=== PATIENT | male | born 1945 | race Caucasian/White ===

== ENCOUNTER 2019-08-25 08:27 | Outpatient (CLI) | payer MEDICARE ==
[2019-08-25 10:18] LABS: BASOPHILS % (AUTO) 0.5 %; EOSINOPHILS # (AUTO) 0.1 10^3/uL (0.0-0.7); HGB - HEMOGLOBIN 14.6 g/dL (14.0-18.0); LYMPHOCYTES # (AUTO) 1.6 10^3/uL (1.5-3.5); LYMPHOCYTES % (AUTO) 26.2 %; MEAN CORPUSCULAR VOLUME 102.9 fL (80.0-94.0); MONOCYTES # (AUTO) 0.5 10^3/uL (0.0-1.0); MONOCYTES % (AUTO) 9.1 %; NEUTROPHILS # (AUTO) 3.7 10^3/uL (1.5-6.6); PLT - PLATELET COUNT 191 10^3/uL (130-450); RED BLOOD COUNT 4.43 10^6/uL (4.70-6.10); RED CELL DISTRIBUTION WIDTH 12.8 % (12.0-15.0); WHITE BLOOD COUNT 5.9 x10^3/uL (4.8-10.8)
[2019-08-25 10:48] LABS: ALBUMIN/GLOBULIN RATIO 1.2 (1.0-2.2); ALKALINE PHOSPHATASE 47 IU/L (42-121); ALT ALANINE AMINOTRANSFERASE 16 IU/L (10-60); AST ASPARTATE AMINOTRANSFERASE 10 IU/L (10-42); BILIRUBIN,TOTAL 0.7 mg/dL (0.2-1.0); BUN - BLOOD UREA NITROGEN 18 mg/dL (6-20); CALCIUM 8.8 mg/dL (8.5-10.3); CARBON DIOXIDE - CO2 26 mmol/L (21-32); CHLORIDE 105 mmol/L (101-111); CHOL/HDL RATIO 3.1 (<5.0); CHOLESTEROL 197 mg/dL; CREATININE 0.9 mg/dL (0.6-1.2); GFR - MDRD 83 (>89); GLUCOSE 100 mg/dL (70-100); HDL CHOLESTEROL 63 mg/dL; LDL CHOLESTEROL,CALCULATED 119 mg/dL; LDL/HDL RATIO 1.9 (<3.6); SODIUM 138 mmol/L (135-145); TOTAL PROTEIN 7.4 g/dL (6.7-8.2); VLDL CHOLESTEROL 15 mg/dL
== END 2019-08-25 08:28 | disposition home or self-care (01) ==
LOC: LAB.S 08:27
PROVIDERS: ATTEND Internal Medicine
DX: E78.5 Hyperlipidemia, unspecified (principal); D75.89 Other specified diseases of blood and blood-forming organs
CPT/HCPCS: 36415; 80053; 80061; 85025; G0103; 83721; 84153

== ENCOUNTER 2020-05-27 22:46 | Inpatient (IN) | payer MEDICARE ==
--- NOTE | 2020-05-27 23:14 | ED Physician Documentation ---
PD HPI ABD PAIN - Stated complaint Stated Complaint: ABD PX - Chief complaint Chief Complaint: Abd Pain - History obtained from History obtained from: Patient - History of Present Illness Timing - onset: Today Timing - duration: Hours (8-10) Timing - details: Abrupt onset, Still present Quality: Cramping, Aching, Fullness/distended, Other (With onset of general abdominal cramping and subsequent distention and no output from his ostomy starting this afternoon. He typically has output every few hours and has to change the bag.) Location: All over / everywhere, Epigastric Worsened by: Eating Associated symptoms: Nausea, Vomiting. No: Fever, Diarrhea, Constipation (but no output from his ostomy since about noontime.) Similar symptoms before: Has not had sx before Recently seen: Not recently seen Review of Systems Constitutional: denies: Fever, Chills Nose: denies: Rhinorrhea / runny nose, Congestion Throat: denies: Sore throat Cardiac: denies: Chest pain / pressure Respiratory: denies: Dyspnea, Cough GI: reports: Abdominal Pain, Abdominal Swelling, Nausea, Vomiting (once only so far). denies: Constipation, Diarrhea : denies: Dysuria Musculoskeletal: denies: Back pain Neurologic: denies: Generalized weakness, Near syncope, Headache PD PAST MEDICAL HISTORY - Past Medical History Past Medical History: Yes Cardiovascular: None Respiratory: None Neuro: None Endocrine/Autoimmune: None GI: Ulcerative colitis : None HEENT: None Psych: None Musculoskeletal: None Derm: None - Past Surgical History Past Surgical History: Yes General: Other (colectomy with ileostomy due to UC perforation and infection) HEENT: Tonsil/Adenoidectomy Derm: Skin cancer surgery - Present Medications Home Medications: Ambulatory Orders Medication Instructions Recorded Confirmed No Known Home Medications 05/27/20 05/27/20 - Allergies Allergies/Adverse Reactions: Allergies Allergy/AdvReac Type Severity Reaction Status Date / Time No Known Drug Allergies Allergy Verified 05/27/20 22:54 - Living Situation Living Arrangement: reports: At home - Social History Does the pt smoke?: No Smoking Status: Never smoker - Family History Family history: reports: Non contributory. denies: Aortic aneursym PD ED PE NORMAL - Vitals Vital signs reviewed: Yes - General General: Alert and oriented X 3, Well developed/nourished, Other (appears in pain due to general abd pain.) - HEENT HEENT: Moist mucous membranes, Pharynx benign - Neck Neck: Supple, no meningeal sign, No adenopathy - Cardiac Cardiac: RRR, No murmur - Respiratory Respiratory: Clear bilaterally - Abdomen Abdomen: No organomegaly, Other (ileostomy noted without redness nor signs of infection. No output in bag. There is general abd bloating with hyperresonance to percussion. Generalized tender but mostly upper abd. ). No: Normal bowel sounds (hyperactive with rushes) - Male Male : Deferred - Rectal Rectal: Deferred - Back Back: No CVA TTP - Derm Derm: Normal color, Warm and dry - Extremities Extremities: No tenderness to palpate, Normal ROM s pain, No edema, No calf tenderness / cord - Neuro Neuro: Alert and oriented X 3, No motor deficit, No sensory deficit, Normal speech Eye Opening: Spontaneous Motor: Obeys Commands Verbal: Oriented GCS Score: 15 Results - Vitals Vitals: Vital Signs - 24 hr 05/27/20 05/28/20 22:51 00:30 Temperature 36.9 C Heart Rate 85 77 Respiratory 18 16 Rate Blood Pressure 153/87 H 145/88 H O2 Saturation 95 96 Oxygen O2 Source Room air - Labs Labs: Laboratory Tests 05/27/20 05/27/20 05/27/20 23:10 23:10 23:20 WBC 9.7 RBC 4.64 L Hgb 16.1 Hct 48.0 MCV 103.4 H MCH 34.7 H MCHC 33.5 RDW 12.7 Plt Count 217 MPV 10.0 Neut # (Auto) 8.2 H Lymph # (Auto) 1.0 L [place] # (Auto) 0.4 Eos # (Auto) 0.0 Baso # (Auto) 0.0 Absolute Nucleated RBC 0.00 Nucleated RBC % 0.0 Sodium 141 Potassium 3.9 Chloride 104 Carbon Dioxide 24 Anion Gap 13.0 BUN 20 Creatinine 1.1 Estimated GFR (MDRD) 65 L Glucose 149 H Calcium 9.9 Total Bilirubin 1.0 AST 14 ALT 20 Alkaline Phosphatase 59 Total Protein 7.6 Albumin 4.4 Globulin 3.2 Albumin/Globulin Ratio 1.4 Lipase 23 Urine Color YELLOW Urine Clarity CLEAR Urine pH 6.0 Ur Specific [place] >=1.030 H Urine Protein NEGATIVE Urine Glucose (UA) NEGATIVE Urine Ketones TRACE Urine Occult Blood NEGATIVE Urine Nitrite NEGATIVE Urine Bilirubin NEGATIVE Urine Urobilinogen 0.2 (NORMAL) Ur Leukocyte Esterase NEGATIVE Ur Microscopic Review NOT INDICATED Urine Culture Comments NOT INDICATED - Rads (name of study) abd/pelvic CT with oral/IV contrast Radiology: Prelim report reviewed (SBO with transition right periumbilical area. No free fluid. ), See rad report PD MEDICAL DECISION MAKING - ED course Complexity details: reviewed results (CT confirms SBO.), re-evaluated patient (comfortable after pain medicine but has return of pain after coming back from CT scan), considered differential (Is likely a bowel obstruction. Will get CT and labs to affirm. We will give patient IV fluids and medicines for pain and nausea.), d/w patient, d/w process improvement consultant (With Dr. Nieves on-call for surgery who refers it to medicine and will consult in the morning. I then talked with Dr. Borden.) Departure - Departure Disposition: ED Place in Observation Clinical Impression: Small bowel obstruction Abdominal pain Qualifiers: Abdominal location: generalized Qualified Code(s): R10.84 - Generalized abdominal pain Condition: Stable Record reviewed to determine appropriate education?: Yes
[2020-05-27 23:36] LABS: BILIRUBIN,URINE NEGATIVE (NEGATIVE); GLUCOSE, URINE (UA) NEGATIVE (NEGATIVE); KETONES,URINE (UA) TRACE mg/dL (NEGATIVE); LEUKOCYTE ESTERASE, URINE NEGATIVE (NEGATIVE); NITRITE,URINE NEGATIVE (NEGATIVE); OCCULT BLOOD,URINE NEGATIVE (NEGATIVE); PROTEIN,URINE NEGATIVE (NEGATIVE); UROBILINOGEN,URINE 0.2 (NORMAL) E.U./dL (NORMAL)
[2020-05-27 23:38] LABS: CLARITY,URINE CLEAR (CLEAR)
[2020-05-27] MEDS ORDERED: HYDROmorphone 1 MG/ML CARPUJECT IVP STA (23:41)
[2020-05-27] MEDS ORDERED: ONDANSETRON 4 MG/2 ML VIAL IVP STA (23:41)
[2020-05-27] MEDS ORDERED: SODIUM CHLORIDE 0.9% 1,000 ML IV STA (23:41)
[2020-05-27 23:45] LABS: ALBUMIN 4.4 g/dL (3.2-5.5); ALBUMIN/GLOBULIN RATIO 1.4 (1.0-2.2); CALCIUM 9.9 mg/dL (8.5-10.3); CREATININE 1.1 mg/dL (0.6-1.2); TOTAL PROTEIN 7.6 g/dL (6.7-8.2)
[2020-05-27 23:49] LABS: BASOPHILS % (AUTO) 0.4 %; EOSINOPHILS % (AUTO) 0.4 %; HGB - HEMOGLOBIN 16.1 g/dL (14.0-18.0); LYMPHOCYTES % (AUTO) 10.4 %; MEAN CORPUSCULAR HEMOGLOBIN 34.7 pg (27.0-31.0); MEAN CORPUSCULAR HGB CONC 33.5 g/dL (32.0-36.0); MEAN CORPUSCULAR VOLUME 103.4 fL (80.0-94.0); MONOCYTES # (AUTO) 0.4 10^3/uL (0.0-1.0); MONOCYTES % (AUTO) 4.3 %; NEUTROPHILS # (AUTO) 8.2 10^3/uL (1.5-6.6); NEUTROPHILS % (AUTO) 84.2 %; PLT - PLATELET COUNT 217 10^3/uL (130-450); RED BLOOD COUNT 4.64 10^6/uL (4.70-6.10); RED CELL DISTRIBUTION WIDTH 12.7 % (12.0-15.0); WHITE BLOOD COUNT 9.7 x10^3/uL (4.8-10.8)
[2020-05-27] MEDS ORDERED: IOVERSOL 320 100 ML VIAL IVP ONE (23:55)
[2020-05-27] MEDS ORDERED: IOVERSOL 320 50 ML VIAL ONE (23:55)
[2020-05-28] MEDS ORDERED: IOVERSOL 320 50 ML VIAL PO ONE (00:51)
[2020-05-28] MEDS ORDERED: IOVERSOL 320 100 ML VIAL IVP ONE (01:15)
[2020-05-28] MEDS ORDERED: LACTATED RINGERS 1,000 ML IV STA (01:53)
[2020-05-28] MEDS ORDERED: KETOROLAC 15 MG/ML VIAL IVP STA (01:53)
[2020-05-28] MEDS ORDERED: HYDROmorphone 1 MG/ML CARPUJECT IVP STA (01:53)
[2020-05-28] MEDS ORDERED: SODIUM CHLORIDE FLUSH 0.9% 10 ML SYRINGE IVP PRN (02:01)
[2020-05-28] MEDS ORDERED: ONDANSETRON 4 MG/2 ML VIAL IVP PRN (02:01)
[2020-05-28] MEDS ORDERED: oxyCODONE 5 MG TABLET PO PRN (02:01)
[2020-05-28] MEDS ORDERED: LACTATED RINGERS 1,000 ML IV ONE (02:03)
--- NOTE | 2020-05-28 02:06 | HISTORY & PHYSICAL EXAMINATION ---
Chief Complaint - Chief Complaint Chief Complaint: Abdominal pain. History of Present Illness - Admitted From Admitted From:: Home - History Obtained From Records Reviewed: Yes History obtained from: Patient, ER Physician, EMR - History of Present Illness HPI Comment/Other: This is a 75-year-old male with a past medical history significant for ulcer ative colitis who underwent a colectomy back in July 2015 after having perforated bowel. This ended up being a prolonged hospitalization and he required a small bowel resection as well due to infection. He has had an ileostomy in place since that hospitalization. He states he has been doing q uite well over the past few years and no longer sees a surgeon. Yesterday at around noon he developed abdominal pain and noticed that he had decreased output in his ostomy. Due to ongoing pain he decided to go to emergency department yesterday evening and on the way there, he had an episode of nonbloody emesis. He reports no fevers but does complain of chills and feeling a little dizzy and lightheaded. He states he has never had a small bowel obstruction in the past. Reports no other abdominal surgery except for left colectomy and small bowel resection which both occurred during the same hospitalization at [facility]. In the emergency department, he underwent imaging with a CT of the abdomen pelvis with oral and IV contrast which confirmed a small bowel obstruction with a transition point. Given the above findings, medicine was consulted for admission. I did discuss goals of care with the patient and he would like to be a full code. History - Past Medical History Cardiovascular: reports: None Respiratory: reports: None Neuro: reports: None Endocrine/Autoimmune: reports: None GI: reports: Ulcerative colitis : reports: None HEENT: reports: None Psych: reports: None Musculoskeletal: reports: None Derm: reports: None - Past Surgical History General: reports: Bowel surgery (Has history of colectomy and small bowel resection with ileostomy.) HEENT: reports: Tonsil/Adenoidectomy Derm: reports: Skin cancer surgery - Family & Social History Family History Comment/Other: He reports his mother from uterine cancer. His grandmother on his father's side also had cancer as well as his maternal aunt. He reports no other significant family history. Living arrangement: At home Living Situation: With spouse/s.o. Social History Notes: He has lived here on [facility] since the end of 2015. He previously lived in [place], [place]. 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 He has never smoked. He he drinks a glass of wine on a daily basis. Meds/Allgy - Home Medications Home Medications: Ambulatory Orders Medication Instructions Recorded Confirmed No Known Home Medications 05/27/20 05/27/20 - Allergies Allergies/Adverse Reactions: Allergies Allergy/AdvReac Type Severity Reaction Status Date / Time No Known Drug Allergies Allergy Verified 05/27/20 22:54 Review of Systems - Constitutional Constitutional: reports: Chills, Malaise, Poor appetite. denies: Fever - Eyes Eyes: denies: Blurred vision - Ears, Nose & Throat Ears, Nose & Throat: denies: Nasal discharge, Nasal congestion, Sore throat - Cardiovascular Cariovascular: reports: Lightheadedness. denies: Chest pain, Edema, Syncope, Exertional dyspnea, Decr. exercise tolerance - Respiratory Respiratory: denies: Cough, SOB at rest, SOB with exertion - Gastrointestinal Gastrointestinal: reports: Abdominal pain, Change in bowel habits, Nausea, Vomiting, Other (Decreased ostomy output.). denies: [place] blood emesis - Genitourinary Genitourinary: denies: Dysuria, Frequency, Urgency, Hematuria - Integumentary Integumentary: denies: Rash - Neurological Neurological: reports: Dizziness. denies: General weakness, Focal weakness, Numbness - Hematologic/Lymphatic Hematologic/Lymphatic: denies: Anemia, Bleeding tendencies - All Other Systems All Other Systems: reports: Reviewed and negative Prior Level of Functionality: He is independent with his ADLs. Exam - Vital Signs Reviewed Vital Signs: Yes Vital Signs: Vital Signs x48h Temp Pulse Resp BP Pulse Ox 05/28/20 00:30 77 16 145/88 H 96 05/27/20 22:51 36.9 C 85 18 153/87 H 95 - Physical Exam General Appearance: positive: No acute distress, Alert Eyes Bilateral: positive: Normal inspection, Conjunctivae nml ENT: positive: ENT inspection nml Neck: positive: Nml inspection Respiratory: positive: No respiratory distress. negative: Wheezes, Rales Cardiovascular: positive: Regular rate & rhythm. negative: Irregularly irregular, Tachycardia, Bradycardia, Systolic murmur Abdomen: positive: Tenderness (Tenderness in the left lower quadrant.), Abnml bowel sounds (Hyperactive.), Other (Ileostomy in place in right lower quadrant.). negative: Guarding, Rebound Skin: positive: Warm, Dry Extremities: positive: No pedal edema Neurologic/Psychiatric: positive: Oriented x3, Motor nml. negative: Disoriented to person, Disoriented to place, Disoriented to time Conclusion/Plan - Problem List (1) Small bowel obstruction Conclusion/Plan: His presentation is consistent with small bowel obstruction this is confirmed on imaging. He did receive oral contrast in the emergency department for the CT. Given he has no longer had episodes of emesis, we will hold off on NG tube. We will hydrate him with lactated Ringer's. Morphine IV as needed for pain Zofran as needed for nausea. N.p.o. for the time being but will reassess in the morn ing to advance his diet. General surgery consult (2) History of ulcerative colitis Conclusion/Plan: Stable. He is status post colectomy back in 2016. - Lab Results Lab results reviewed: Yes Bruce Bones: 05/28/20 04:50 05/28/20 04:50 - Diagnostic Imaging Results Diagnostic Imaging Results: positive: Prelim report reviewed Core Measures - Anticipated LOS I expect patient to be DC'd or transferred within 96 hours.: Yes - Issues Hospital Issues and Management Plan: 75-year-old male with history of ulcerative colitis status post colectomy a few years ago with ileostomy in place presents with a small bowel obstruction. Will place in observation for antiemetics, pain control, IV fluids. General surgery consult. - DVT/VTE - Prophylaxis VTE/DVT Device ordered at admit?: Yes VTE/DVT Prophylaxis med ordered at admit?: Yes
[2020-05-28 03:30] LABS: C. PNEUMONIAE- RESP PCR PANEL NOT DETECTED
[2020-05-28] MEDS: LACTATED RINGERS 1,000 ML IV SCH ×2 (03:52→13:37)
[2020-05-28 05:10] LABS: BASOPHILS % (AUTO) 0.1 %; LYMPHOCYTES # (AUTO) 0.8 10^3/uL (1.5-3.5); LYMPHOCYTES % (AUTO) 10.2 %; MEAN CORPUSCULAR HEMOGLOBIN 34.2 pg (27.0-31.0); MEAN CORPUSCULAR HGB CONC 32.7 g/dL (32.0-36.0); MEAN CORPUSCULAR VOLUME 104.6 fL (80.0-94.0); MEAN PLATELET VOLUME 9.7 fL (7.4-11.4); MONOCYTES # (AUTO) 0.4 10^3/uL (0.0-1.0); MONOCYTES % (AUTO) 4.8 %; NEUTROPHILS # (AUTO) 6.2 10^3/uL (1.5-6.6); NEUTROPHILS % (AUTO) 84.6 %; PLT - PLATELET COUNT 188 10^3/uL (130-450); RED BLOOD COUNT 4.09 10^6/uL (4.70-6.10); RED CELL DISTRIBUTION WIDTH 12.7 % (12.0-15.0); WHITE BLOOD COUNT 7.3 x10^3/uL (4.8-10.8)
[2020-05-28 05:27] LABS: CALCIUM 9.1 mg/dL (8.5-10.3); CREATININE 0.9 mg/dL (0.6-1.2); MAGNESIUM 1.9 mg/dL (1.7-2.8)
[2020-05-28] MEDS: ENOXAPARIN 40 MG/0.4 ML SYRINGE SUBQ SCH (08:27)
[2020-05-28] MEDS: SODIUM CHLORIDE FLUSH 0.9% 10 ML SYRINGE IVP SCH ×2 (08:29→17:22)
--- NOTE | 2020-05-28 09:14 | CT Report ---
PROCEDURE: Abdomen/Pelvis W INDICATIONS: iliostomy no output and diffuse abd pain today CONTRAST: IV CONTRAST: Optiray 320 ml: 100 PO CONTRAST: Optiray 320 ml50 TECHNIQUE: After the administration of intravenous contrast, 5 mm thick sections acquired from the diaphragms to the symphysis. 5 mm thick coronal and sagittal reformats were acquired. For radiation dose reducti on, the following was used: automated exposure control, adjustment of mA and/or kV according to kalie ent size. COMPARISON: None. FINDINGS: Image quality: Excellent. ABDOMEN: Lung bases: Minimal bibasilar atelectasis versus scarring. Heart size is normal. Solid organs: Liver and spleen are normal in size and enhancement. Gallbladder is unremarkable. Bi liary system is non dilated. Pancreas enhances normally. No adrenal nodules. Kidneys demonstrate n ormal size and enhancement, without hydronephrosis. Peritoneum and bowel: Subtotal colectomy with blind rectal pouch present and ileostomy. There is a di stal small bowel obstruction with small bowel loops dilated up to 3 cm. No free fluid or air. Nodes and vessels: No retroperitoneal or mesenteric adenopathy by size criteria. Aorta and inferior vena cava are normal in size. Miscellaneous: No ventral hernias. PELVIS: Genitourinary: Bladder wall thickness is normal. Miscellaneous: No inguinal hernias or adenopathy. Bones: No suspicious bony lesions. No vertebral body compression fractures. IMPRESSION: 1. Remote subtotal colectomy. Ileostomy. 2. Distal small bowel obstruction. A preliminary report with the above findings was provided at the time of the study by [facility]. Reviewed by: Arnulfo Balbuena MD on 05/28/2020 9:13 AM [facility] Approved by: Arnulfo Balbuena MD on 05/28/2020 9:13 AM PST Station ID: [id number]
--- NOTE | 2020-05-28 10:45 | PHARMACY PROGRESS NOTE ---
- Best Possible Medication History Admit Date and Time: 05/28/20 0201 Processed by: Pharmacy Medication History completed: Yes Patient Interview: Completed (PATIENT STATES HE DOES NOT TAKE ANY HOME MEDICATIONS.) As the person ultimately responsible for medication therapy, providers are able to order a medication from an existing home medication list in [facility] via the "Reconcile Routine" prior to Confirmation of that medication by endoscopy support specialist. Such practice is discouraged except when the physician, in their clinical judgment, deems that a medical need exists for a medication without regard to previous use.
--- NOTE | 2020-05-28 12:42 | HISTORY & PHYSICAL EXAMINATION ---
Chief Complaint - Chief Complaint Chief Complaint: abdominal discomfort and no stoma output for 12 hours Abdominal Pain HPI - Admitted From Admitted from: ED (He has history of ulcerative colitis and required emergent subtotal colectomy 4 to 5 years ago for perforated colon. He has had an ileostomy since and had been well until yesterday) - History Obtained From Exam limitations: No limitations - History of Present Illness Severity at the worst: Moderate Pain Quality: Dull, Cramping Timing: Gradual onset Duration: Days: (1) Associated symptoms: Nausea (feeling better now. minimal to no pain. denies nausea) PMH/PSH - Past Medical History Cardiovascular: positive: None Respiratory: positive: None Neuro: positive: None Endocrine/Autoimmune: positive: None GI: positive: Ulcerative colitis : positive: None HEENT: positive: None Psych: positive: None Musculoskeletal: positive: None Derm: positive: None Other Past Medical History: GLASSES, STATES ENLARGED PROSTATE - Past Surgical History General: positive: Bowel surgery (Has history of colectomy and small bowel resection with ileostomy.) HEENT: positive: Tonsil/Adenoidectomy Derm: positive: Skin cancer surgery Social & Family Hx - Social History Does the pt smoke?: No Smoking Status: Never smoker Meds/Allgy - Home Medications Home Medications: Ambulatory Orders Medication Instructions Recorded Confirmed No Known Home Medications 05/27/20 05/27/20 - Allergies Allergies/Adverse Reactions: Allergies Allergy/AdvReac Type Severity Reaction Status Date / Time No Known Drug Allergies Allergy Verified 05/27/20 22:54 Review of Systems - Constitutional Constitutional: reports: Fatigue (10 pt ros as above otherwise unremarkable) Exam - Vital Signs Reviewed Vital Signs: Yes Vital Signs: Vital Signs x48h Temp Pulse Resp BP Pulse Ox 05/28/20 09:00 36.6 C 67 14 141/76 H 93 - Physical Exam General Appearance: positive: No acute distress, Alert Eyes Bilateral: positive: Normal inspection, PERRL, EOMI ENT: positive: No signs of dehydration Neck: positive: No JVD Respiratory: positive: No respiratory distress, Breath sounds nml Abdomen: positive: Non-tender, No distention Neurologic/Psychiatric: positive: Oriented x3 Results - Lab Results Fish Bones: 05/28/20 04:50 05/28/20 04:50 Other Lab Results: Lab Results x24hrs 1205/28/20 05/28/20 Range/Units 04:50 04:50 02:20 WBC 7.3 (4.8-10.8) x10^3/uL RBC 4.09 L (4.70-6.10) 10^6/uL Hgb 14.0 (14.0-18.0) g/dL Hct 42.8 (42.0-52.0) % MCV 104.6 H (80.0-94.0) fL MCH 34.2 H (27.0-31.0) pg MCHC 32.7 (32.0-36.0) g/dL RDW 12.7 (12.0-15.0) % Plt Count 188 (130-450) 10^3/uL MPV 9.7 (7.4-11.4) fL Neut # (Auto) 6.2 (1.5-6.6) 10^3/uL Lymph # (Auto) 0.8 L (1.5-3.5) 10^3/uL [place] # (Auto) 0.4 (0.0-1.0) 10^3/uL Eos # (Auto) 0.0 (0.0-0.7) 10^3/uL Baso # (Auto) 0.0 (0.0-0.1) 10^3/uL Absolute Nucleated RBC 0.00 x10^3/uL Nucleated RBC % 0.0 /100WBC Sodium 138 (135-145) mmol/L Potassium 4.2 (3.5-5.0) mmol/L Chloride 105 (101-111) mmol/L Carbon Dioxide 25 (21-32) mmol/L Anion Gap 8.0 (6-13) BUN 17 (6-20) mg/dL Creatinine 0.9 (0.6-1.2) mg/dL Estimated GFR (MDRD) 82 L (>89) Glucose 124 H (70-100) mg/dL Calcium 9.1 (8.5-10.3) mg/dL Magnesium 1.9 (1.7-2.8) mg/dL Total Bilirubin (0.2-1.0) mg/dL AST (10-42) IU/L ALT (10-60) IU/L Alkaline Phosphatase (42-121) IU/L Total Protein (6.7-8.2) g/dL Albumin (3.2-5.5) g/dL Globulin (2.1-4.2) g/dL Albumin/Globulin Ratio (1.0-2.2) Lipase (22-51) U/L Urine Color Urine Clarity (CLEAR) Urine pH (5.0-7.5) PH Ur Specific [place] (1.002-1.030) Urine Protein (NEGATIVE) mg/dL Urine Glucose (UA) (NEGATIVE) mg/dL Urine Ketones (NEGATIVE) mg/dL Urine Occult Blood (NEGATIVE) Urine Nitrite (NEGATIVE) Urine Bilirubin (NEGATIVE) Urine Urobilinogen (NORMAL) E.U./dL Ur Leukocyte Esterase (NEGATIVE) Ur Microscopic Review Urine Culture Comments Nasal Adenovirus (PCR) NOT DETECTED Nasal B. parapertussis DNA (PCR) NOT DETECTED Nasal Coronavir 229E PCR NOT DETECTED Nasal Coronavir HKU1 PCR NOT DETECTED Nasal Coronavir NL63 PCR NOT DETECTED Nasal Coronavir OC43 PCR NOT DETECTED Nasal Enterovir/Rhinovir PCR NOT DETECTED Nasal Influenza B PCR NOT DETECTED Nasal Influenza A PCR NOT DETECTED Nasal Parainfluen 1 PCR NOT DETECTED Nasal Parainfluen 2 PCR NOT DETECTED Nasal Parainfluen 3 PCR NOT DETECTED Nasal Parainfluen 4 PCR NOT DETECTED Nasal RSV (PCR) NOT DETECTED Nasal B.pertussis DNA PCR NOT DETECTED Nasal C.pneumoniae (PCR) NOT DETECTED Som Human Metapneumo PCR NOT DETECTED Nasal M.pneumoniae (PCR) NOT DETECTED Nasal SARS-CoV-2 (PCR) NOT DETECTED 05/27/20 05/27/20 05/27/20 Range/Units 23:20 23:10 23:10 WBC 9.7 (4.8-10.8) x10^3/uL RBC 4.64 L (4.70-6.10) 10^6/uL Hgb 16.1 (14.0-18.0) g/dL Hct 48.0 (42.0-52.0) % MCV 103.4 H (80.0-94.0) fL MCH 34.7 H (27.0-31.0) pg MCHC 33.5 (32.0-36.0) g/dL RDW 12.7 (12.0-15.0) % Plt Count 217 (130-450) 10^3/uL MPV 10.0 (7.4-11.4) fL Neut # (Auto) 8.2 H (1.5-6.6) 10^3/uL Lymph # (Auto) 1.0 L (1.5-3.5) 10^3/uL [place] # (Auto) 0.4 (0.0-1.0) 10^3/uL Eos # (Auto) 0.0 (0.0-0.7) 10^3/uL Baso # (Auto) 0.0 (0.0-0.1) 10^3/uL Absolute Nucleated RBC 0.00 x10^3/uL Nucleated RBC % 0.0 /100WBC Sodium 141 (135-145) mmol/L Potassium 3.9 (3.5-5.0) mmol/L Chloride 104 (101-111) mmol/L Carbon Dioxide 24 (21-32) mmol/L Anion Gap 13.0 (6-13) BUN 20 (6-20) mg/dL Creatinine 1.1 (0.6-1.2) mg/dL Estimated GFR (MDRD) 65 L (>89) Glucose 149 H (70-100) mg/dL Calcium 9.9 (8.5-10.3) mg/dL Magnesium (1.7-2.8) mg/dL Total Bilirubin 1.0 (0.2-1.0) mg/dL AST 14 (10-42) IU/L ALT 20 (10-60) IU/L Alkaline Phosphatase 59 (42-121) IU/L Total Protein 7.6 (6.7-8.2) g/dL Albumin 4.4 (3.2-5.5) g/dL Globulin 3.2 (2.1-4.2) g/dL Albumin/Globulin Ratio 1.4 (1.0-2.2) Lipase 23 (22-51) U/L Urine Color YELLOW Urine Clarity CLEAR (CLEAR) Urine pH 6.0 (5.0-7.5) PH Ur Specific [place] >=1.030 H (1.002-1.030) Urine Protein NEGATIVE (NEGATIVE) mg/dL Urine Glucose (UA) NEGATIVE (NEGATIVE) mg/dL Urine Ketones TRACE (NEGATIVE) mg/dL Urine Occult Blood NEGATIVE (NEGATIVE) Urine Nitrite NEGATIVE (NEGATIVE) Urine Bilirubin NEGATIVE (NEGATIVE) Urine Urobilinogen 0.2 (NORMAL) (NORMAL) E.U./dL Ur Leukocyte Esterase NEGATIVE (NEGATIVE) Ur Microscopic Review NOT INDICATED Urine Culture Comments NOT INDICATED Nasal Adenovirus (PCR) Nasal B. parapertussis DNA (PCR) Nasal Coronavir 229E PCR Nasal Coronavir HKU1 PCR Nasal Coronavir NL63 PCR Nasal Coronavir OC43 PCR Nasal Enterovir/Rhinovir PCR Nasal Influenza B PCR Nasal Influenza A PCR Nasal Parainfluen 1 PCR Nasal Parainfluen 2 PCR Nasal Parainfluen 3 PCR Nasal Parainfluen 4 PCR Nasal RSV (PCR) Nasal B.pertussis DNA PCR Nasal C.pneumoniae (PCR) Som Human Metapneumo PCR Nasal M.pneumoniae (PCR) Nasal SARS-CoV-2 (PCR) - Diagnostic Imaging Results Diagnostic Imaging Results: positive: Read independently (small bowel obstruction) Impression/Plan - Problem List Problem List: small bowel obstruction. history subtotal colectomy and ulcerative colitis. Agree with care and plan. will follow closely. I discussed with him if his abdomen gets tight and he is throwing up he will need an NGT. We also discussed these obstructions take care of themselves nearly 80% of the time. If he is not improving, develops significant pain, plan surgery
[2020-05-28] MEDS: ACETAMINOPHEN 325 MG TABLET PO PRN (21:58)
[2020-05-29] MEDS: LACTATED RINGERS 1,000 ML IV SCH ×3 (00:07→19:34)
[2020-05-29] MEDS: SODIUM CHLORIDE FLUSH 0.9% 10 ML SYRINGE IVP SCH ×4 (00:07→23:28)
[2020-05-29] MEDS: MORPHINE 2 MG/ML CARPUJECT IVP PRN ×2 (01:58→12:19)
[2020-05-29 05:23] LABS: BASOPHILS % (AUTO) 0.2 %; EOSINOPHILS # (AUTO) 0.1 10^3/uL (0.0-0.7); EOSINOPHILS % (AUTO) 0.7 %; HGB - HEMOGLOBIN 15.1 g/dL (14.0-18.0); LYMPHOCYTES # (AUTO) 1.1 10^3/uL (1.5-3.5); LYMPHOCYTES % (AUTO) 13.7 %; MEAN CORPUSCULAR HEMOGLOBIN 35.3 pg (27.0-31.0); MEAN CORPUSCULAR HGB CONC 34.3 g/dL (32.0-36.0); MEAN CORPUSCULAR VOLUME 102.8 fL (80.0-94.0); MEAN PLATELET VOLUME 9.8 fL (7.4-11.4); MONOCYTES # (AUTO) 0.6 10^3/uL (0.0-1.0); MONOCYTES % (AUTO) 7.3 %; NEUTROPHILS # (AUTO) 6.5 10^3/uL (1.5-6.6); NEUTROPHILS % (AUTO) 77.7 %; PLT - PLATELET COUNT 184 10^3/uL (130-450); RED BLOOD COUNT 4.28 10^6/uL (4.70-6.10); RED CELL DISTRIBUTION WIDTH 12.5 % (12.0-15.0); WHITE BLOOD COUNT 8.3 x10^3/uL (4.8-10.8)
[2020-05-29 05:34] LABS: CALCIUM 8.7 mg/dL (8.5-10.3); CREATININE 0.9 mg/dL (0.6-1.2)
[2020-05-29] MEDS: ENOXAPARIN 40 MG/0.4 ML SYRINGE SUBQ SCH (08:50)
--- NOTE | 2020-05-29 11:14 | PROVIDER PROGRESS NOTE ---
Assessment/Plan - Problem List (1) Small bowel obstruction Assessment/Plan: He continues to have generalized abdominal pain, the abdomen is more tense and distended mildly, and his emesis recurred overnight. He got nauseated after having half a cup of tea and half a cup of broth for breakfast. Since there has been no significant improvement, will admit him to Inpatient status. Continue with IV fluids for hydration. Continue with bowel rest; either sips clear liquids or if he has any more episodes of vomiting, will insert an NG tube for decompression. Appreciate General Surgery consult and following along with us. Continue IV antiemetics as needed. Continue pain meds as needed. Follow electrolytes daily. (2) History of creation of ostomy Assessment/Plan: Patient claims he had one tiny BM which came out of his ostomy. Continue with standard ostomy care (3) History of ulcerative colitis Assessment/Plan: As per Hx. - Current Meds Current Meds: Current Medications Generic Name Dose Route Start Last Admin Trade Name Freq PRN Reason Stop Dose Admin Acetaminophen 650 mg 05/28/20 02:01 05/28/20 21:58 Acetaminophen 325 Mg Tablet PO 650 mg Q4HR PRN Administration Pain 1 to 4 Enoxaparin Sodium 40 mg 05/28/20 09:00 05/29/20 08:50 Enoxaparin 40 Mg/0.4 Ml Syringe SUBQ 40 mg DAILY PHONG Administration Lactated Ringer's 1,000 mls @ 100 mls/hr 05/28/20 03:00 05/29/20 08:51 Lr IV 100 mls/hr .Q10H PHONG Administration Morphine Sulfate 2 mg 05/28/20 02:01 05/29/20 01:58 Morphine 2 Mg/Ml Carpuject IVP 2 mg Q2HR PRN Administration Pain 8 to 10 Ondansetron HCl 4 mg 05/28/20 02:01 05/29/20 10:54 Ondansetron 4 Mg/2 Ml Vial IVP 4 mg Q6HR PRN Administration Nausea / Vomiting Oxycodone HCl 5 mg 05/28/20 02:01 05/28/20 09:21 Oxycodone 5 Mg Tablet PO 5 mg Q4HR PRN Administration Pain 5 to 7 Sodium Chloride 10 ml 05/28/20 09:00 05/29/20 09:39 Sodium Chloride Flush 0.9% 10 Ml Syringe IVP Not Given 0100,0900,1700 PHONG - Lab Result Fish Bone Diagrams: 05/29/20 05:05 05/29/20 05:05 - Additional Planning My Orders: My Active Orders 05/29/20 11:08 Transfer [Admit \ Transfer \ Status] [RC] .ONCE Subjective - Subjective Patient Reports: Abdominal Pain, Nausea Nursing Reports: Vomitting (He threw up his oral potassium pill which was given right after he ate breakfast) Objective Vital Signs: Vital Signs - 24 hr 05/28/20 05/28/20 05/28/20 13:00 16:01 21:00 Temperature 36.6 C 36.6 C 36.6 C Heart Rate [ 75 70 77 Brachial] Respiratory 14 18 18 Rate Blood Pressure 141/74 H 151/72 H 158/78 H [Right Brachial artery] O2 Saturation 95 94 94 05/28/20 05/29/20 05/29/20 23:55 05:00 08:36 Temperature 36.5 C 36.8 C 36.8 C Heart Rate [ 78 71 76 Brachial] Respiratory 16 16 14 Rate Blood Pressure 139/86 H 147/83 H 142/88 H [Right Brachial artery] O2 Saturation 95 93 92 Oxygen O2 Source Room air I&O (Last 24 Hrs): Intake and Output Totals x24h 05/27/20 05/28/20 05/29/20 23:59 23:59 23:59 Intake Total 4725 873.333 Output Total 650 850 Balance 4075 23.333 General: Alert, Oriented x3 HEENT: Other (Dry oral mucosa) Neck: Supple, No JVD Neuro: Alert, Non Focal Cardiovascular: Regular rate, No murmurs Respiratory: No respiratory distress, Breath sounds nml Abdomen: Soft, Other (Diminished but present bowel sounds. Mildly distended abd. No guarding or rebound. Mildly tender diffusely.) Extremities: No edema - Results Results: Laboratory Results WBC 8.3 x10^3/uL (4.8-10.8) 05/29/20 05:05 RBC 4.28 10^6/uL (4.70-6.10) L 05/29/20 05:05 Hgb 15.1 g/dL (14.0-18.0) 05/29/20 05:05 Hct 44.0 % (42.0-52.0) 05/29/20 05:05 MCV 102.8 fL (80.0-94.0) H 05/29/20 05:05 MCH 35.3 pg (27.0-31.0) H 05/29/20 05:05 MCHC 34.3 g/dL (32.0-36.0) 05/29/20 05:05 RDW 12.5 % (12.0-15.0) 05/29/20 05:05 Plt Count 184 10^3/uL (130-450) 05/29/20 05:05 MPV 9.8 fL (7.4-11.4) 05/29/20 05:05 Neut # (Auto) 6.5 10^3/uL (1.5-6.6) 05/29/20 05:05 Lymph # (Auto) 1.1 10^3/uL (1.5-3.5) L 05/29/20 05:05 [place] # (Auto) 0.6 10^3/uL (0.0-1.0) 05/29/20 05:05 Eos # (Auto) 0.1 10^3/uL (0.0-0.7) 05/29/20 05:05 Baso # (Auto) 0.0 10^3/uL (0.0-0.1) 05/29/20 05:05 Absolute Nucleated RBC 0.00 x10^3/uL 05/29/20 05:05 Nucleated RBC % 0.0 /100WBC 05/29/20 05:05 Sodium 139 mmol/L (135-145) 05/29/20 05:05 Potassium 3.9 mmol/L (3.5-5.0) 05/29/20 05:05 Chloride 101 mmol/L (101-111) 05/29/20 05:05 Carbon Dioxide 26 mmol/L (21-32) 05/29/20 05:05 Anion Gap 12.0 (6-13) 05/29/20 05:05 BUN 15 mg/dL (6-20) 05/29/20 05:05 Creatinine 0.9 mg/dL (0.6-1.2) 05/29/20 05:05 Estimated GFR (MDRD) 82 (>89) L 05/29/20 05:05 Glucose 118 mg/dL (70-100) H 05/29/20 05:05 Calcium 8.7 mg/dL (8.5-10.3) 05/29/20 05:05 Magnesium 2.0 mg/dL (1.7-2.8) 05/29/20 05:05 Total Bilirubin 1.0 mg/dL (0.2-1.0) 05/27/20 23:10 AST 14 IU/L (10-42) 05/27/20 23:10 ALT 20 IU/L (10-60) 05/27/20 23:10 Alkaline Phosphatase 59 IU/L (42-121) 05/27/20 23:10 Total Protein 7.6 g/dL (6.7-8.2) 05/27/20 23:10 Albumin 4.4 g/dL (3.2-5.5) 05/27/20 23:10 Globulin 3.2 g/dL (2.1-4.2) 05/27/20 23:10 Albumin/Globulin Ratio 1.4 (1.0-2.2) 05/27/20 23:10 Lipase 23 U/L (22-51) 05/27/20 23:10 Vitamin B12 678 pg/mL (180-914) 05/28/20 04:50 Urine Color YELLOW 05/27/20 23:20 Urine Clarity CLEAR (CLEAR) 05/27/20 23:20 Urine pH 6.0 PH (5.0-7.5) 05/27/20 23:20 Ur Specific [place] >=1.030 (1.002-1.030) H 05/27/20 23:20 Urine Protein NEGATIVE mg/dL (NEGATIVE) 05/27/20 23:20 Urine Glucose (UA) NEGATIVE mg/dL (NEGATIVE) 05/27/20 23:20 Urine Ketones TRACE mg/dL (NEGATIVE) 05/27/20 23:20 Urine Occult Blood NEGATIVE (NEGATIVE) 05/27/20 23:20 Urine Nitrite NEGATIVE (NEGATIVE) 05/27/20 23:20 Urine Bilirubin NEGATIVE (NEGATIVE) 05/27/20 23:20 Urine Urobilinogen 0.2 (NORMAL) E.U./dL (NORMAL) 05/27/20 23:20 Ur Leukocyte Esterase NEGATIVE (NEGATIVE) 05/27/20 23:20 Ur Microscopic Review NOT INDICATED 05/27/20 23:20 Urine Culture Comments NOT INDICATED 05/27/20 23:20 Nasal Adenovirus (PCR) NOT DETECTED 05/28/20 02:20 Nasal B. parapertussis DNA (PCR) NOT DETECTED 05/28/20 02:20 Nasal Coronavir 229E PCR NOT DETECTED 05/28/20 02:20 Nasal Coronavir HKU1 PCR NOT DETECTED 05/28/20 02:20 Nasal Coronavir NL63 PCR NOT DETECTED 05/28/20 02:20 Nasal Coronavir OC43 PCR NOT DETECTED 05/28/20 02:20 Nasal Enterovir/Rhinovir PCR NOT DETECTED 05/28/20 02:20 Nasal Influenza B PCR NOT DETECTED 05/28/20 02:20 Nasal Influenza A PCR NOT DETECTED 05/28/20 02:20 Nasal Parainfluen 1 PCR NOT DETECTED 05/28/20 02:20 Nasal Parainfluen 2 PCR NOT DETECTED 05/28/20 02:20 Nasal Parainfluen 3 PCR NOT DETECTED 05/28/20 02:20 Nasal Parainfluen 4 PCR NOT DETECTED 05/28/20 02:20 Nasal RSV (PCR) NOT DETECTED 05/28/20 02:20 Nasal B.pertussis DNA PCR NOT DETECTED 05/28/20 02:20 Nasal C.pneumoniae (PCR) NOT DETECTED 05/28/20 02:20 Som Human Metapneumo PCR NOT DETECTED 05/28/20 02:20 Nasal M.pneumoniae (PCR) NOT DETECTED 05/28/20 02:20 Nasal SARS-CoV-2 (PCR) NOT DETECTED 05/28/20 02:20
--- NOTE | 2020-05-29 16:49 | PROVIDER PROGRESS NOTE ---
Subjective - Prog Note Date Prog Note Date: 05/29/20 - Subjective Pt reports feeling: Improved (I saw him this am. He had mild discomfort and had mildly green emesis. this evening he is much improved with stoma output for first time in days) Objective - Vital Signs/Intake & Output Reviewed Vital Signs: Yes Vital Signs: Vital Signs x48h Temp Pulse Resp BP Pulse Ox 05/29/20 15:59 36.8 C 88 18 139/82 H 93 05/29/20 12:41 36.7 C 79 14 144/83 H 94 Intake & Output: Intake & Output 05/26/20 05/27/20 05/28/20 05/29/20 23:59 23:59 23:59 23:59 Intake Total 4725 993.333 Output Total 650 1100 Balance 4075 -106.667 - Objective General Appearance: positive: No acute distress, Alert Eyes Bilateral: positive: Normal inspection, PERRL, EOMI ENT: positive: No signs of dehydration Neck: positive: No JVD Respiratory: positive: No respiratory distress Abdomen: positive: Non-tender, Other (mild distension. stoma bag full) - Lab Results Fish Bones: 05/29/20 05:05 05/29/20 05:05 Other Labs: Lab Results x24hrs 05/29/20 05/29/20 Range/Units 05:05 05:05 WBC 8.3 (4.8-10.8) x10^3/uL RBC 4.28 L (4.70-6.10) 10^6/uL Hgb 15.1 (14.0-18.0) g/dL Hct 44.0 (42.0-52.0) % MCV 102.8 H (80.0-94.0) fL MCH 35.3 H (27.0-31.0) pg MCHC 34.3 (32.0-36.0) g/dL RDW 12.5 (12.0-15.0) % Plt Count 184 (130-450) 10^3/uL MPV 9.8 (7.4-11.4) fL Neut # (Auto) 6.5 (1.5-6.6) 10^3/uL Lymph # (Auto) 1.1 L (1.5-3.5) 10^3/uL [place] # (Auto) 0.6 (0.0-1.0) 10^3/uL Eos # (Auto) 0.1 (0.0-0.7) 10^3/uL Baso # (Auto) 0.0 (0.0-0.1) 10^3/uL Absolute Nucleated RBC 0.00 x10^3/uL Nucleated RBC % 0.0 /100WBC Sodium 139 (135-145) mmol/L Potassium 3.9 (3.5-5.0) mmol/L Chloride 101 (101-111) mmol/L Carbon Dioxide 26 (21-32) mmol/L Anion Gap 12.0 (6-13) BUN 15 (6-20) mg/dL Creatinine 0.9 (0.6-1.2) mg/dL Estimated GFR (MDRD) 82 L (>89) Glucose 118 H (70-100) mg/dL Calcium 8.7 (8.5-10.3) mg/dL Magnesium 2.0 (1.7-2.8) mg/dL Assessment/Plan - Problem List (1) Small bowel obstruction Impression: much improved this evening with return of bowel function. abdomen is still mild ly tight. recommend continue with clears this evening. Possibly can go home tomorrow
[2020-05-29] MEDS: ACETAMINOPHEN 325 MG TABLET PO PRN (21:39)
[2020-05-30 05:04] LABS: BASOPHILS % (AUTO) 0.3 %; EOSINOPHILS # (AUTO) 0.2 10^3/uL (0.0-0.7); EOSINOPHILS % (AUTO) 3.3 %; HGB - HEMOGLOBIN 14.3 g/dL (14.0-18.0); LYMPHOCYTES # (AUTO) 1.4 10^3/uL (1.5-3.5); LYMPHOCYTES % (AUTO) 22.1 %; MEAN CORPUSCULAR HGB CONC 33.3 g/dL (32.0-36.0); MEAN CORPUSCULAR VOLUME 105.1 fL (80.0-94.0); MONOCYTES # (AUTO) 0.6 10^3/uL (0.0-1.0); MONOCYTES % (AUTO) 9.1 %; PLT - PLATELET COUNT 176 10^3/uL (130-450); RED BLOOD COUNT 4.09 10^6/uL (4.70-6.10); RED CELL DISTRIBUTION WIDTH 12.3 % (12.0-15.0); WHITE BLOOD COUNT 6.2 x10^3/uL (4.8-10.8)
[2020-05-30 05:12] LABS: CALCIUM 8.6 mg/dL (8.5-10.3); CREATININE 0.9 mg/dL (0.6-1.2)
[2020-05-30] MEDS: LACTATED RINGERS 1,000 ML IV SCH (05:40)
[2020-05-30] MEDS ORDERED: LACTATED RINGERS 1,000 ML IV SCH (08:08)
[2020-05-30] MEDS: ENOXAPARIN 40 MG/0.4 ML SYRINGE SUBQ SCH (08:19)
[2020-05-30] MEDS: SODIUM CHLORIDE FLUSH 0.9% 10 ML SYRINGE IVP SCH (08:44)
--- NOTE | 2020-05-30 09:16 | PROVIDER PROGRESS NOTE ---
Subjective - Prog Note Date Prog Note Date: 05/30/20 - Subjective Pt reports feeling: Improved (No nausea. tolerating clears well) Objective - Vital Signs/Intake & Output Reviewed Vital Signs: Yes Vital Signs: Vital Signs x48h Temp Pulse Resp BP Pulse Ox 05/30/20 08:02 36.8 C 77 18 150/82 H 93 05/30/20 04:42 36.6 C 81 16 150/83 H 93 Intake & Output: Intake & Output 05/27/20 05/28/20 05/29/20 05/30/20 23:59 23:59 23:59 23:59 Intake Total 4725 2820.000 1228.333 Output Total 650 1725 1050 Balance 4075 1095.000 178.333 - Objective General Appearance: positive: No acute distress, Alert Eyes Bilateral: positive: Normal inspection, PERRL Respiratory: positive: No respiratory distress Rectal: positive: Non-tender, Other (still mildly distended) - Lab Results Fish Bones: 05/30/20 04:45 05/30/20 04:45 Other Labs: Lab Results x24hrs 05/30/20 05/30/20 Range/Units 04:45 04:45 WBC 6.2 (4.8-10.8) x10^3/uL RBC 4.09 L (4.70-6.10) 10^6/uL Hgb 14.3 (14.0-18.0) g/dL Hct 43.0 (42.0-52.0) % MCV 105.1 H (80.0-94.0) fL MCH 35.0 H (27.0-31.0) pg MCHC 33.3 (32.0-36.0) g/dL RDW 12.3 (12.0-15.0) % Plt Count 176 (130-450) 10^3/uL MPV 10.0 (7.4-11.4) fL Neut # (Auto) 4.0 (1.5-6.6) 10^3/uL Lymph # (Auto) 1.4 L (1.5-3.5) 10^3/uL [place] # (Auto) 0.6 (0.0-1.0) 10^3/uL Eos # (Auto) 0.2 (0.0-0.7) 10^3/uL Baso # (Auto) 0.0 (0.0-0.1) 10^3/uL Absolute Nucleated RBC 0.00 x10^3/uL Nucleated RBC % 0.0 /100WBC Sodium 140 (135-145) mmol/L Potassium 3.9 (3.5-5.0) mmol/L Chloride 103 (101-111) mmol/L Carbon Dioxide 28 (21-32) mmol/L Anion Gap 9.0 (6-13) BUN 13 (6-20) mg/dL Creatinine 0.9 (0.6-1.2) mg/dL Estimated GFR (MDRD) 82 L (>89) Glucose 98 (70-100) mg/dL Calcium 8.6 (8.5-10.3) mg/dL Magnesium 2.0 (1.7-2.8) mg/dL Assessment/Plan - Problem List (1) Small bowel obstruction Impression: He is much improved. I explained he should remain on a low fiber diet until his abdomen is completely soft again. I believe he should be fine going home today and slowly advance his diet at home Follow up surgery office as needed. [phone]
--- NOTE | 2020-05-30 11:08 | Discharge Plan ---
Discharge Plan Problem Reviewed?: Yes Disposition: Home, Self Care Condition: Stable Diet: Soft Activity Restrictions: Activity as Tolerated Shower Restrictions: No Driving Restrictions: No Instruction Topics: Obstruction Sm Bowel Health Concerns: You were hospitalized to manage abdominal pain, nausea and vomiting which were caused by small bowel obstruction. You are being discharged and advised to stay on a clear liquid or pured diet and advance your diet VERY SLOWLY as tolerated. Please see your PCP in the next 5 to 10 days for hospital follow-up for this problem. You may resume taking any prehospital medications. Plan of Treatment: As above. Care Goals: Improvement in symptoms and stabilization are the goals. Assessment: Patient understands and is agreeable with the plan. Additional Instructions or Follow Up instructions: If you have new or worsening symptoms, call your PCP for advice or come to the ED. No Smoking: If you smoke, Please STOP! Call for help. Follow-up with: Sunny Johnson MD [Provider Admit Priv/Credential] -
--- NOTE | 2020-05-30 11:11 | DISCHARGE SUMMARY ---
Discharge Summary Admit Date: 05/28/20 Discharge Date: 05/30/20 Discharging Provider: Dr Erin Ruffin Primary Care Provider: Dr Sunny Johnson Code Status: Attempt Resuscitation Condition at Discharge: Stable Discharge Disposition: 01 Home, Self Care - [facility] History of Present Illness: From the admission H&P of Dr Evangelista Palafox: This is a 75-year-old male with a past medical history significant for ulcerative colitis who underwent a colectomy back in July 2015 after having perforated bowel. This ended up being a prolonged hospitalization and he requi red a small bowel resection as well due to infection. He has had an ileostomy in place since that hospitalization. He states he has been doing quite well over the past few years and no longer sees a surgeon. Yesterday at around noon he developed abdominal pain and noticed that he had decreased output in his ostomy. Due to ongoing pain he decided to go to emergency department yesterday evening and on the way there, he had an episode of nonbloody emesis. He reports no fevers but does complain of chills and feeling a little dizzy and lightheaded. He states he has never had a small bowel obstruction in the past. Reports no other abdominal surgery except for left colectomy and small bowel resection which both occurred during the same hospitalization at [facility]. In the emergency department, he underwent imaging with a CT of the abdomen pelvis with oral and IV contrast which confirmed a small bowel obstruction with a transition point. Given the above findings, this Hospitalist was consulted for admission. I did discuss goals of care with the patient and he would like to be a full code. - HOSPITAL COURSE Hospital Course: (1) Small bowel obstruction He was started on iv fluids and placed in Observation status. He did not get NG tube for decompression but was treated with as needed IV anti-emetics with relief and was tried on a clear liquid diet. He seemed to improve then redeveloped generalized abdominal pain, and the abdomen became more tense and distended mildly, and then his emesis recurred. He was admitted to full Inpatient status. He was seen in consult by General Surgery who advised co ntinuation with the same course of treatment with bowel rest and only offering sips of clear liquids or if he has any more episodes of vomiting, to insert an NG tube for decompression. Over the following 24 to 30 hours, he did have improvement in pain, had no nausea after liquids and then a pured diet and also bowel sounds returned and he started to have output into his ostomy. He was discharged with advice to stay on a pured, bland diet for the next 5 days, and to stay well-hydrated and only advance the diet as tolerated. (2) History of creation of ostomy We continued with standard ostomy care. (3) History of ulcerative colitis As per Hx. - ALLERGIES Allergies/Adverse Reactions: Allergies Allergy/AdvReac Type Severity Reaction Status Date / Time No Known Drug Allergies Allergy Verified 05/27/20 22:54 - MEDICATIONS Home Medications: Ambulatory Orders Medication Instructions Recorded Confirmed No Known Home Medications 05/27/20 05/27/20 - PHYSICAL EXAM AT DISCHARGE General Appearance: positive: No acute distress, Alert Eyes Bilateral: positive: Normal inspection, EOMI ENT: positive: ENT inspection nml, No signs of dehydration Neck: positive: Nml inspection, No JVD Respiratory: positive: No respiratory distress, Breath sounds nml Cardiovascular: positive: Regular rate & rhythm, No murmur Abdomen: positive: Nml bowel sounds, Other (Distended, nontender, right-sided ostomy with bag present) Skin: positive: Warm, Dry Extremities: positive: Non-tender, No pedal edema Neurologic/Psychiatric: positive: Oriented x3, Motor nml - LABS Result Diagrams: 05/30/20 04:45 05/30/20 04:45 - DIAGNOSTIC IMAGING Diagnostic Imaging Results: Final report reviewed - FOLLOW UP Follow Up: See PCP in the next 5 to 10 days for hospital follow-up. - TIME SPENT Time Spent in Discharge (Minutes): 30
[2020-05-30 13:16] VITALS: BP 116/68
== END 2020-05-30 13:33 | disposition home or self-care (01) | DRG 389 ==
LOC: ED 22:46 → MS2 05-28 02:01 → OBSVTOIN 05-29 11:08
PROVIDERS: ADMIT Internal Medicine; ATTEND Internal Medicine
DX: K56.609 Unspecified intestinal obstruction, unspecified as to partial versus complete obstruction (principal); K51.90 Ulcerative colitis, unspecified, without complications; Z93.2 Ileostomy status; Z90.49 Acquired absence of other specified parts of digestive tract; Z20.828 Contact with and (suspected) exposure to other viral communicable diseases
CPT/HCPCS: 36415; 74177; 80048; 80053; 81003; 82607; 83690; 83735; 84425; 85025; 87631; 96361; 96372; 96374; 96375; 96376; 99284; 99285; A9270; G0378; J1170; J1650; J7120; Q9967; 0202U; 81001; 87086

== ENCOUNTER 2021-11-05 08:13 | Outpatient (CLI) | payer MEDICARE ==
[2021-11-05 14:34] LABS: ALBUMIN 3.8 g/dL (3.2-5.5); ALBUMIN/GLOBULIN RATIO 1.2 (1.0-2.2); ALKALINE PHOSPHATASE 38 IU/L (42-121); ALT ALANINE AMINOTRANSFERASE 24 IU/L (10-60); AST ASPARTATE AMINOTRANSFERASE 13 IU/L (10-42); BUN - BLOOD UREA NITROGEN 22 mg/dL (6-20); CALCIUM 9.1 mg/dL (8.5-10.3); CARBON DIOXIDE - CO2 27 mmol/L (21-32); CHLORIDE 105 mmol/L (101-111); CHOL/HDL RATIO 3.6 (<5.0); CHOLESTEROL 210 mg/dL; CREATININE 0.9 mg/dL (0.6-1.2); GFR - MDRD 82 (>89); GLUCOSE 100 mg/dL (70-100); HDL CHOLESTEROL 58 mg/dL; LDL CHOLESTEROL,CALCULATED 137 mg/dL; LDL/HDL RATIO 2.4 (<3.6); POTASSIUM 4.7 mmol/L (3.5-5.0); SODIUM 139 mmol/L (135-145); TOTAL PROTEIN 7.1 g/dL (6.7-8.2); TRIGLYCERIDES 76 mg/dL; VLDL CHOLESTEROL 15 mg/dL
[2021-11-05 14:42] LABS: THYROID STIMULATING HORMONE 1.15 uIU/mL (0.34-5.60)
[2021-11-05 14:53] LABS: BASOPHILS # (AUTO) 0.1 10^3/uL (0.0-0.1); BASOPHILS % (AUTO) 0.8 %; EOSINOPHILS # (AUTO) 1.5 10^3/uL (0.0-0.7); EOSINOPHILS % (AUTO) 24.7 %; HCT - HEMATOCRIT 47.4 % (42.0-52.0); HGB - HEMOGLOBIN 15.6 g/dL (14.0-18.0); LYMPHOCYTES # (AUTO) 1.7 10^3/uL (1.5-3.5); LYMPHOCYTES % (AUTO) 27.7 %; MEAN CORPUSCULAR HEMOGLOBIN 34.3 pg (27.0-31.0); MEAN CORPUSCULAR HGB CONC 32.9 g/dL (32.0-36.0); MEAN CORPUSCULAR VOLUME 104.2 fL (80.0-94.0); MEAN PLATELET VOLUME 10.8 fL (7.4-11.4); MONOCYTES # (AUTO) 0.6 10^3/uL (0.0-1.0); MONOCYTES % (AUTO) 9.4 %; NEUTROPHILS # (AUTO) 2.2 10^3/uL (1.5-6.6); NEUTROPHILS % (AUTO) 37.2 %; PLT - PLATELET COUNT 226 10^3/uL (130-450); RED BLOOD COUNT 4.55 10^6/uL (4.70-6.10); RED CELL DISTRIBUTION WIDTH 13.7 % (12.0-15.0)
[2021-11-05 15:00] LABS: SLIDE REVIEW? Indicated
[2021-11-05 17:05] LABS: DIFFERENTIAL COMMENT MANUAL=AUTO DIFF; PLATELET ESTIMATE, MANUAL NORMAL (130-450,000) (NORMAL); PLATELET MORPHOLOGY NORMAL APPEARANCE (NORMAL); RBC MORPHOLOGY (MULTIPLE) NORMAL APPEARANCE (NORMAL)
== END 2021-11-05 08:14 | disposition home or self-care (01) ==
LOC: LAB.S 08:13
PROVIDERS: ATTEND Nurse Practitioner Family
DX: R06.09 Other forms of dyspnea (principal); R53.83 Other fatigue; Z13.6 Encounter for screening for cardiovascular disorders
CPT/HCPCS: 36415; 80053; 80061; 83721; 83880; 84443; 85025

== ENCOUNTER 2021-11-14 10:50 | Outpatient (CLI) | payer MEDICARE ==
[2021-11-14 15:38] LABS: % IRON SATURATION 35 % (20-50); IRON 107 ug/dL (45-182); TOTAL IRON BINDING CAPACITY 304 ug/dL (250-450); TRANSFERRIN 217 mg/dL (180-329)
[2021-11-14 15:53] LABS: FERRITIN 190.6 ng/mL (23.9-336.2)
== END 2021-11-14 10:51 | disposition home or self-care (01) ==
LOC: LAB.S 10:50
PROVIDERS: ATTEND Nurse Practitioner Family
DX: D53.9 Nutritional anemia, unspecified (principal)
CPT/HCPCS: 36415; 82607; 82728; 82746; 83540; 84466

== ENCOUNTER 2021-12-05 09:13 | Outpatient (CLI) | payer MEDICARE ==
--- NOTE | 2021-12-05 09:57 | CARDIAC PROCEDURE NOTE ---
Stress Test Report Service Date: 12/05/21 Service Time: 09:30 Ordering Provider: Raquel Ag ARNP Indication for Test: Assess exertional capacity and for inducible ischemia in patient with progressive fatigue. Significant Medical History: Maurice is referred today for a treadmill stress echocardiogram to assess his progressive exertional fatigue and dyspnea. He experienced a complex hospitalization in 2016 that started with acute rupture of his colon, requiring emergent exploratory surgery with placement of a colostomy. This hospitalization was complicated by severe hospital-acquired pneumonia with empyema requiring chest tube drainage, as well as pulmonary emboli, requiring several months treatment with anticoagulation. He believes that his functional status improved close to its prior baseline in the ensuing interval, though this is somewhat difficult to quantitate in interview today. He mentions that his typical room air oxygen level has run in the low-mid 90's since this severe illness. He reports iron-deficiency anemia for which he is now being treated with iron supplementation, recalling a hematocrit value of 30. He tells me that for the past 2 months he has had a progressive worsening of his exercise capacity with leg weakness increasing shortness of breath and occasional upper sternal tightness associated with flushing, sweatiness and some lightheadedness. The recovery time may be prolonged to as long as 2 hours when experiencing one of these episodes, which is most typical when he tries to go up a flight of stairs too fast. He denies any relation of this recent and marked decline with Covid vaccine or infection. He remains moderately active around his home with routine tasks such as riding his lawnmower and taking out the trash, as long as he paces himself. Cardiac Risk Factors: Positive for hyperlipidemia (untreated); negative for hypertension, diabetes, family history of known heart disease or stroke, with no tobacco smoking history though he notes exposed to secondhand smoke as a child. Type of Stress Test: ETT with Echocardiography Procedure: -Exercise Treadmill Test- After signing informed consent, the patient performed treadmill exercise using a Modified Austen protocol. The patient exercised for 6 minutes 43 seconds and achieved a peak heart rate of 126 (87 percent predicted maximum heart rate for age), and an estimated workload of 3.9 METS. The test was terminated due to leg fatigue (primarily) with shortness of breath. Resting heart rate: 84 Peak heart rate: 126 Normal response to exercise. Resting BP: 136/77 Peak BP: 186/84 Normal increase of systolic BP and abnormal increase in diastolic BP in response to exercise. Rhythm during exercise: Sinus rhythm throughout, with no PVCs observed, likely no PACs (but difficult to be certain due to significant baseline EKG artifact). Symptoms: There was no description of any chest discomfort, flushing or lightheadedness. EKG at rest showed normal sinus rhythm with minor ST elevation in scattered leads, most likely due to normal early repolarization variant. EKG at peak stress showed no ischemia by EKG criteria. In Recovery BP rapidly normalized, HR was decreasing; monitoring terminated early due to patient needing to use the restroom. Echo imaging performed at rest and with stress will be reported separately. IVishnu MD, was present throughout this treadmill stress study and supervised it in its entirety. Summary: 1) Exercise tolerance likely preserved as evidenced by nomogram-derived BRENDA of - 26.5% (modified Austen scale). 2) Normal resting EKG. 3) Adequate level of exercise was achieved on this treadmill stress test. 4) Normal BP response to exercise. 5) No ischemic changes by EKG criteria were seen at peak stress. 6) Low normal range room air oxygen saturation at rest, with exercise-associated reduction to borderline abnormal level (86-89%). 7) Echo image interpretation reveals normal left ventricular size and systolic function, with appropriate hyperdynamic augmentation of all segments with exercise, with increase of left ventricular ejection fraction from 65 to >75%, indicating no evidence of prior infarct or inducible ischemia. Note is made that by the time stress imaging could be completed, HR had fallen below 85% maximal predicted; thus ischemia at higher workload could not be excluded. Screening study showed normal LV wall thickness with a pattern of impaired relaxation consistent with grade I diastolic dysfunction; valve morphology analysis reveals mild aortic valve sclerosis and mild primary mitral regurgitation. There was no elevation of estimated right ventricular/pulmonary artery systolic pressure detected. See separate report for more details. CONCLUSIONS: 1) Overall reassuring modified Austen exercise tolerance test, with reasonably intact exercise capacity, and no symptom, EKG or echo evidence of inducible ischemia. 2) Exertional oxygen saturation decreased, likely consequence of remote severe pneumonia and sequelae. 3) Anemia could be playing a role in his symptom perception and if he is truly iron deficient, then work-up for a source would be appropriate. 4) There was evidence of impaired left ventricular relaxation with grade I diastolic dysfunction, another potential contributor to exercise limitation.
== END 2021-12-05 09:14 | disposition home or self-care (01) ==
LOC: DI 09:13
PROVIDERS: ATTEND Nurse Practitioner Family
DX: I51.89 Other ill-defined heart diseases (principal); E78.5 Hyperlipidemia, unspecified
CPT/HCPCS: 93016; 93017; 93018; 93350

== ENCOUNTER 2021-12-13 15:18 | Outpatient (CLI) | payer MEDICARE ==
--- NOTE | 2021-12-13 16:24 | XRAY Report ---
PROCEDURE: Chest 2 View X-Ray INDICATIONS: DYSPNEA ON EXERTION TECHNIQUE: 2 view(s) of the chest. COMPARISON: None. FINDINGS: Surgical changes and devices: None. Lungs and pleura: No pleural effusions or pneumothorax. There are airspace opacities in the left mid lung and right infrahilar lung. These findings are probably chronic given the appearance, however if clinical symptoms suggest early pneumonia could cause this appearance Mediastinum: Mediastinal contours are normal. Heart size is normal. Bones and chest wall: No suspicious bony abnormalities. Soft tissues appear unremarkable. IMPRESSION: Increased interstitial markings appear chronic however if patient has clinical findings of pneumonia early pneumonia could cause this appearance. Reviewed by: Ganga Rivas on 12/13/2021 4:23 PM PDT Approved by: Ganga Rivas on 12/13/2021 4:23 PM PDT Station ID: [id number]
== END 2021-12-13 15:19 | disposition home or self-care (01) ==
LOC: DI.S 15:18
PROVIDERS: ATTEND Nurse Practitioner Family
DX: R06.09 Other forms of dyspnea (principal)

== ENCOUNTER 2021-12-16 11:33 | Outpatient (CLI) | payer MEDICARE | END 2021-12-16 11:34 | disposition home or self-care (01) | LOC: LAB.S 11:33 | PROVIDERS: ATTEND Nurse Practitioner Family | DX: R06.09 Other forms of dyspnea (principal) | CPT/HCPCS: 36415; 85379 ==

== ENCOUNTER 2022-01-10 11:01 | Outpatient (CLI) | payer MEDICARE ==
--- NOTE | 2022-01-10 17:34 | CT Report ---
PROCEDURE: CHEST WO INDICATIONS: DYSPNEA ON EXERTION TECHNIQUE: Noncontrast 1mm axial images were acquired from the pulmonary apices to the posterior costophrenic an gles. Axial 5 mm soft tissue kernel reconstructions were performed as well as 8 mm axial MIP and cor onal and sagittal 5 mm reformations. For radiation dose reduction, the following was used: automate d exposure control, adjustment of mA and/or kV according to patient size. COMPARISON: Chest x-ray, 2 views, 12/13/2009 22. FINDINGS: Image quality: Excellent. Lungs and pleura: There are bilateral subpleural densities, most likely scars and atelectasis. There is flexion bronchiectasis bilaterally. No focal consolidation. No pleural effusion or pneumothorax. Mediastinum: Heart size is normal. Mild coronary calcification. No pericardial effusion. No medias tinal adenopathy by size criteria. Thoracic aorta and central pulmonary arteries are normal in size. Esophagus is normal in caliber. No hiatal hernia. Bones and chest wall: No suspicious bony lesions. No vertebral body compression fractures. There is mild right axillary lymphadenopathy. The thyroid is normal in size and there are no incidental find ings. Abdomen: There is a 3 mm nonobstructive stone in the superior pole of the left kidney. Visualized up per abdominal solid organs and bowel loops appear normal in the absence of contrast. IMPRESSION: 1. Bilateral subpleural densities, most likely postinflammation/postinfection scars and atelectasis. 2. Bilateral traction bronchiectasis. 3. Mild right axillary lymphadenopathy. Recommend clinical follow-up. 4. A 3 mm nonobstructive left renal stone. 5. Mild coronary calcification. CLINICAL RECOMMENDATION STATEMENTS: In patients <35 years with an ITN detected on CT, MRI, or extrathyroidal ultrasound, the Committee re commends further evaluation with dedicated thyroid ultrasound if the nodule is "e1 cm and has no susp icious imaging features, and if the patient has normal life expectancy. In patients "e35 years with an ITN detected on CT, MRI, or extrathyroidal ultrasound, the Committee r ecommends further evaluation with dedicated thyroid ultrasound if the nodule is "e1.5 cm and has no s uspicious imaging features, and if the patient has normal life expectancy. (ACR, 2014) Reviewed by: Meryl Urena MD on 01/10/2022 5:33 PM PDT Approved by: Meryl Urena MD on 01/10/2022 5:33 PM [facility] Station ID: [id number]
== END 2022-01-10 11:02 | disposition home or self-care (01) ==
LOC: DI 11:01
PROVIDERS: ATTEND Nurse Practitioner Family
DX: J47.9 Bronchiectasis, uncomplicated (principal); R59.0 Localized enlarged lymph nodes; N20.0 Calculus of kidney; I25.10 Atherosclerotic heart disease of native coronary artery without angina pectoris

== ENCOUNTER 2022-03-10 19:05 | Emergency (ER) | payer MEDICARE ==
[2022-03-10 19:28] LABS: BASOPHILS % (AUTO) 0.2 %; EOSINOPHILS % (AUTO) 0.1 %; HCT - HEMATOCRIT 46.6 % (42.0-52.0); HGB - HEMOGLOBIN 15.6 g/dL (14.0-18.0); LYMPHOCYTES # (AUTO) 0.7 10^3/uL (1.5-3.5); LYMPHOCYTES % (AUTO) 5.1 %; MEAN CORPUSCULAR HEMOGLOBIN 34.1 pg (27.0-31.0); MEAN CORPUSCULAR HGB CONC 33.5 g/dL (32.0-36.0); MEAN CORPUSCULAR VOLUME 101.7 fL (80.0-94.0); MEAN PLATELET VOLUME 9.4 fL (7.4-11.4); MONOCYTES # (AUTO) 0.9 10^3/uL (0.0-1.0); MONOCYTES % (AUTO) 6.9 %; NEUTROPHILS # (AUTO) 11.1 10^3/uL (1.5-6.6); NEUTROPHILS % (AUTO) 87.4 %; PLT - PLATELET COUNT 199 10^3/uL (130-450); RED BLOOD COUNT 4.58 10^6/uL (4.70-6.10); RED CELL DISTRIBUTION WIDTH 13.6 % (12.0-15.0); WHITE BLOOD COUNT 12.7 x10^3/uL (4.8-10.8)
[2022-03-10 19:45] LABS: ALBUMIN 3.9 g/dL (3.2-5.5); ALBUMIN/GLOBULIN RATIO 1.1 (1.0-2.2); BILIRUBIN,TOTAL 0.8 mg/dL (0.2-1.0); CALCIUM 9.5 mg/dL (8.5-10.3); POTASSIUM 4.5 mmol/L (3.5-5.0); TOTAL PROTEIN 7.4 g/dL (6.7-8.2)
[2022-03-10 20:18] LABS: BILIRUBIN,URINE NEGATIVE (NEGATIVE); GLUCOSE, URINE (UA) NEGATIVE (NEGATIVE); KETONES,URINE (UA) NEGATIVE (NEGATIVE); LEUKOCYTE ESTERASE, URINE NEGATIVE (NEGATIVE); NITRITE,URINE NEGATIVE (NEGATIVE); OCCULT BLOOD,URINE TRACE-INTA (NEGATIVE); PH,URINE 5.5 PH (5.0-7.5); PROTEIN,URINE NEGATIVE (NEGATIVE); UROBILINOGEN,URINE 0.2 (NORMAL) E.U./dL (NORMAL)
[2022-03-10 20:21] LABS: CLARITY,URINE CLEAR (CLEAR)
[2022-03-10] MEDS ORDERED: ONDANSETRON 4 MG/2 ML VIAL IVP STA (20:46)
[2022-03-10] MEDS ORDERED: SODIUM CHLORIDE 0.9% 1,000 ML IV STA ×2 (20:46→21:14)
[2022-03-10] MEDS ORDERED: ACETAMINOPHEN 325 MG TABLET PO STA (21:14)
--- NOTE | 2022-03-10 22:13 | XRAY Report ---
PROCEDURE: Chest 1 View X-Ray INDICATIONS: fever/CP TECHNIQUE: One view of the chest was acquired. COMPARISON: 12/13/2021 FINDINGS: Surgical changes and devices: None. Lungs and pleura: There are increased patchy airspace opacities within the left lung base suggestive of pneumonia. No pleural effusions or pneumothorax. Mediastinum: Mediastinal contours appear normal. Heart size is normal. Bones and chest wall: No suspicious bony lesions. Overlying soft tissues appear unremarkable. IMPRESSION: 1. Increased patchy airspace opacities in the left lung base suggestive of pneumonia given clinical h istory. Reviewed by: Tenzin Fong MD on 03/10/2022 10:12 PM PDT Approved by: Tenzin Fong MD on 03/10/2022 10:12 PM PDT Station ID: [id number]
--- NOTE | 2022-03-10 22:52 | CT Report ---
PROCEDURE: Abdomen/Pelvis W INDICATIONS: L side abd pain, low-grade fever CONTRAST: IV CONTRAST: Optiray 320 ml: 100 PO CONTRAST: *NO PO CONTRAST TECHNIQUE: After the administration of intravenous contrast, 5 mm thick sections acquired from the diaphragms to the symphysis. 5 mm thick coronal and sagittal reformats were acquired. For radiation dose reducti on, the following was used: automated exposure control, adjustment of mA and/or kV according to kalie ent size. COMPARISON: Report from CT abdomen pelvis 05/28/2020. Images not available at time of dictation.. FINDINGS: Image quality: There is motion artifact limiting evaluation. Lung bases:Bibasilar scarring demonstrated in the lung bases with small peripheral regions of conflu ent scarring or atelectasis in the lower lobes. Heart: Heart is normal in size. ABDOMEN: Liver: No mass lesion. Gallbladder: Within normal limits without calcified gallstones. Biliary ducts: No biliary ductal dilatation. Pancreas:There is a small focus of calcification in the pancreas likely reflecting sequelae of chron ic pancreatitis. No pancreatic duct dilatation. No peripancreatic fat stranding or fluid collections. . Spleen: Normal in size. Adrenal Glands: No adrenal nodules. Kidneys and Ureters: No hydronephrosis. There is a 0.2 cm nonobstructing stone within the left kidne y. At least one punctate nonobstructing stone is demonstrated within the right kidney. Stomach and Bowel:There are postsurgical changes redemonstrated consistent with prior subtotal colec lilliam with a right lower quadrant diverting ileostomy. There is a segment of mild small bowel wall thi ckening with associated fat stranding in the left mid abdomen. Findings are consistent with a nonspec ific enteritis. There is mild swirling of the small bowel without evidence of obstruction. Peritoneum: No abnormal intraperitoneal fluid. No free air. Ventral Wall: There is a small hernia along the right lower quadrant ileostomy containing a short se gment of small bowel. No associated bowel obstruction or strangulation. Abdominal Nodes: No retroperitoneal or mesenteric adenopathy by size criteria. Vessels: Aorta and inferior vena cava are normal in size. PELVIS: Pelvic Organs:There is moderate enlargement of the prostate. Bladder:The bladder is partially distended. Pelvic Nodes: No enlarged lymph nodes. Miscellaneous: No inguinal hernias are seen. Bones: Visualized osseous structures demonstrate no suspicious focal lesions. IMPRESSION: 1. Segmental mild small bowel wall thickening with adjacent fat stranding in the left mid abdomen con sistent with a nonspecific enteritis, likely infectious or inflammatory. Mild associated swirling of small bowel is present without evidence of obstruction. 2. Postsurgical changes redemonstrated status post subtotal colectomy with a diverting right lower qu adrant ileostomy. A small hernia along the ostomy containing a short segment of small bowel is demons trated without evidence of associated bowel obstruction or strangulation. 3. Bilateral scarring within the lung bases with likely areas of chronic scarring or atelectasis sylvia pherally. Reviewed by: Tenzin Fong MD on 03/10/2022 10:51 PM PDT Approved by: Tenzin Fong MD on 03/10/2022 10:51 PM PDT Station ID: [id number]
[2022-03-10 23:05] LABS: B. PARAPERTUSSIS- RESP PCR PAN NOT DETECTED; B. PERTUSSIS- RESP PCR PANEL NOT DETECTED; C. PNEUMONIAE- RESP PCR PANEL NOT DETECTED; CORONAVIRUS 229E-RESP PCR NOT DETECTED; CORONAVIRUS HKU1-RESP PCR NOT DETECTED; CORONAVIRUS NL63-RESP PCR NOT DETECTED; CORONAVIRUS OC43-RESP PCR NOT DETECTED; HUMAN METAPNEUMOVIRUS NOT DETECTED; INFLUENZA A- RESP PCR PANEL NOT DETECTED; INFLUENZA B - RESP PCR PANEL NOT DETECTED; M. PNEUMONIAE- RESP PCR PANEL NOT DETECTED; PARAINFLUENZA VIRUS 1 NOT DETECTED; PARAINFLUENZA VIRUS 2 NOT DETECTED; PARAINFLUENZA VIRUS 3 NOT DETECTED; PARAINFLUENZA VIRUS 4 NOT DETECTED; RHINOVIRUS/ENTEROVIRUS NOT DETECTED; RSV- RESP PCR PANEL NOT DETECTED; SARS-CoV-2 -RESP PCR PANEL NOT DETECTED
[2022-03-10] MEDS ORDERED: AZITHROMYCIN 250 MG TABLET PO STA (23:23)
[2022-03-10] MEDS ORDERED: cefTRIAXone 2 GM in SODIUM CHLORIDE 0.9% MINIBAG 100 ML IV STA (23:23)
[2022-03-10] MEDS ORDERED: cefTRIAXone 2 GM VIAL ONE (23:47)
--- NOTE | 2022-03-11 00:16 | ED Physician Documentation ---
PD HPI ABD PAIN - Stated complaint Stated Complaint: L SIDE PX - Chief complaint Chief Complaint: Abd Pain - History obtained from History obtained from: Patient, Family - Additional information Additional information: The patient comes to the emergency department with chief complaint of left side pain which seems to be centered mainly in his stomach. He states he also feels that she [place] lower as well as the back of his chest a little. He denies shortness of breath that is worse than usual. No nausea or vomiting. No diaphoresis. Patient states that he has an ostomy secondary to ulcerative c olitis and that it has been putting out normally he denies any bloody or dark output. He reports a feeling of fever and chills, though he has not measured a fever. No new medications. No sick contacts. No other complaints at this time. Review of Systems Ten Systems: 10 systems reviewed and negative Constitutional: reports: Reviewed and negative Eyes: reports: Reviewed and negative Ears: reports: Reviewed and negative Nose: reports: Reviewed and negative Throat: reports: Reviewed and negative Cardiac: reports: Reviewed and negative Respiratory: reports: Dyspnea GI: reports: Abdominal Pain. denies: Nausea, Vomiting, Constipation : reports: Reviewed and negative Skin: reports: Reviewed and negative Musculoskeletal: reports: Reviewed and negative Neurologic: reports: Reviewed and negative Psychiatric: reports: Reviewed and negative Endocrine: reports: Reviewed and negative Immunocompromised: reports: Reviewed and negative PD PAST MEDICAL HISTORY - Past Medical History Cardiovascular: None Respiratory: None Neuro: None Endocrine/Autoimmune: None GI: Ulcerative colitis : None HEENT: None Psych: None Musculoskeletal: None Derm: None - Past Surgical History Past Surgical History: Yes General: Bowel surgery (Has history of colectomy and small bowel resection with ileostomy.) HEENT: Tonsil/Adenoidectomy Derm: Skin cancer surgery - Present Medications Home Medications: Ambulatory Orders Medication Instructions Recorded Confirmed Azithromycin [Zithromax] 0 mg PO DAILY #6 tablet 03/11/22 - Allergies Allergies/Adverse Reactions: Allergies Allergy/AdvReac Type Severity Reaction Status Date / Time No Known Drug Allergies Allergy Verified 03/10/22 19:15 - Social History Does the pt smoke?: No Smoking Status: Never smoker PD ED PE NORMAL - Vitals Vital signs reviewed: Yes - General General: Alert and oriented X 3, No acute distress, Well developed/nourished - HEENT HEENT: Atraumatic, PERRL, EOMI, Moist mucous membranes - Neck Neck: Supple, no meningeal sign - Cardiac Cardiac: RRR, No murmur, Strong equal pulses - Respiratory Respiratory: No respiratory distress, Clear bilaterally - Abdomen Abdomen: Soft, Non distended, Other (Moderate tenderness left upper quadrant, no rebound or guarding.) - Derm Derm: Normal color, Warm and dry, No rash - Extremities Extremities: No deformity, No edema - Neuro Neuro: Alert and oriented X 3, apple sorter 2-12 intact, Normal speech - Psych Psych: Normal mood, Normal affect Results - Vitals Vitals: Vital Signs - 24 hr 03/10/22 03/10/22 03/10/22 19:09 20:35 22:11 Temperature 37.5 C Heart Rate 119 H 114 H 115 H Respiratory 16 16 18 Rate Blood Pressure 128/69 126/71 101/56 L O2 Saturation 93 94 91 L 03/10/22 03/11/22 23:31 00:21 Temperature Heart Rate 107 H 101 H Respiratory 20 16 Rate Blood Pressure 95/59 L 112/67 O2 Saturation 92 93 Oxygen O2 Source Room air - Labs Labs: Laboratory Tests 03/10/22 03/10/22 03/10/22 19:22 19:22 20:03 WBC 12.7 H RBC 4.58 L Hgb 15.6 Hct 46.6 MCV 101.7 H MCH 34.1 H MCHC 33.5 RDW 13.6 Plt Count 199 MPV 9.4 Neut # (Auto) 11.1 H Lymph # (Auto) 0.7 L Rusk # (Auto) 0.9 Eos # (Auto) 0.0 Baso # (Auto) 0.0 Absolute Nucleated RBC 0.00 Nucleated RBC % 0.0 Sodium 137 Potassium 4.5 Chloride 101 Carbon Dioxide 28 Anion Gap 8.0 BUN 23 H Creatinine 1.0 Estimated GFR (MDRD) 73 L Glucose 167 H Lactic Acid Calcium 9.5 Total Bilirubin 0.8 AST 14 ALT 18 Alkaline Phosphatase 52 Total Protein 7.4 Albumin 3.9 Globulin 3.5 Albumin/Globulin Ratio 1.1 Lipase 30 Urine Color YELLOW Urine Clarity CLEAR Urine pH 5.5 Ur Specific Confluence >=1.030 H Urine Protein NEGATIVE Urine Glucose (UA) NEGATIVE Urine Ketones NEGATIVE Urine Occult Blood TRACE-INTA Urine Nitrite NEGATIVE Urine Bilirubin NEGATIVE Urine Urobilinogen 0.2 (NORMAL) Ur Leukocyte Esterase NEGATIVE Ur Microscopic Review NOT INDICATED Urine Culture Comments NOT INDICATED Nasal Adenovirus (PCR) Nasal B. parapertussis DNA (PCR) Nasal Coronavir 229E PCR Nasal Coronavir HKU1 PCR Nasal Coronavir NL63 PCR Nasal Coronavir OC43 PCR Nasal Enterovir/Rhinovir PCR Nasal Influenza B PCR Nasal Influenza A PCR Nasal Parainfluen 1 PCR Nasal Parainfluen 2 PCR Nasal Parainfluen 3 PCR Nasal Parainfluen 4 PCR Nasal RSV (PCR) Nasal B.pertussis DNA PCR Nasal C.pneumoniae (PCR) Som Human Metapneumo PCR Nasal M.pneumoniae (PCR) Nasal SARS-CoV-2 (PCR) 03/10/22 03/10/22 22:06 23:35 WBC RBC Hgb Hct MCV MCH MCHC RDW Plt Count MPV Neut # (Auto) Lymph # (Auto) Rusk # (Auto) Eos # (Auto) Baso # (Auto) Absolute Nucleated RBC Nucleated RBC % Sodium Potassium Chloride Carbon Dioxide Anion Gap BUN Creatinine Estimated GFR (MDRD) Glucose Lactic Acid 1.3 Calcium Total Bilirubin AST ALT Alkaline Phosphatase Total Protein Albumin Globulin Albumin/Globulin Ratio Lipase Urine Color Urine Clarity Urine pH Ur Specific Confluence Urine Protein Urine Glucose (UA) Urine Ketones Urine Occult Blood Urine Nitrite Urine Bilirubin Urine Urobilinogen Ur Leukocyte Esterase Ur Microscopic Review Urine Culture Comments Nasal Adenovirus (PCR) NOT DETECTED Nasal B. parapertussis DNA (PCR) NOT DETECTED Nasal Coronavir 229E PCR NOT DETECTED Nasal Coronavir HKU1 PCR NOT DETECTED Nasal Coronavir NL63 PCR NOT DETECTED Nasal Coronavir OC43 PCR NOT DETECTED Nasal Enterovir/Rhinovir PCR NOT DETECTED Nasal Influenza B PCR NOT DETECTED Nasal Influenza A PCR NOT DETECTED Nasal Parainfluen 1 PCR NOT DETECTED Nasal Parainfluen 2 PCR NOT DETECTED Nasal Parainfluen 3 PCR NOT DETECTED Nasal Parainfluen 4 PCR NOT DETECTED Nasal RSV (PCR) NOT DETECTED Nasal B.pertussis DNA PCR NOT DETECTED Nasal C.pneumoniae (PCR) NOT DETECTED Som Human Metapneumo PCR NOT DETECTED Nasal M.pneumoniae (PCR) NOT DETECTED Nasal SARS-CoV-2 (PCR) NOT DETECTED - Rads (name of study) Chest x-ray Radiology: Final report received, EMP read indepedently, See rad report (Patchy opacities in left lung base, suggestive of pneumonia) PD MEDICAL DECISION MAKING - ED course Complexity details: reviewed results, re-evaluated patient, considered different ial, d/w patient, d/w family ED course: The patient was worked up with laboratory studies, showed a mild leukocytosis. Viral panel was normal. The patient felt hot and his oral blood pressure was rechecked and found to be 99.4. I guessed that the patient's core temperature was most likely slightly in fever range. Patient was given a dose of Tylenol and a liter of fluid that he was found to be tachypneic in the 110s. He was sent for CT scan of the abdomen and pelvis to evaluate his abdominal pain in the setting of fever and leukocytosis, and this was unremarkable. His chest x-ray showed patchy opacities in his left lung base, which most likely helps explain the pain on the left. The patient was treated with antibiotics. He is given a prescription for this today. He has been instructed regarding home management of the symptoms, the need to take his antibiotics, and the usual indications for return. Departure - Departure Disposition: 01 Home, Self Care Clinical Impression: Pneumonia Qualifiers: Pneumonia type: due to unspecified organism Laterality: unspecified laterality Lung location: unspecified part of lung Qualified Code(s): J18.9 - Pneumonia, unspecified organism Abdominal pain Qualifiers: Abdominal location: left upper quadrant Qualified Code(s): R10.12 - Left upper quadrant pain Condition: Stable Instructions: ED Pneumonia Adult, ED Abdominal Pain Unkn Cause Male Prescriptions: Azithromycin [Zithromax] 0 mg PO DAILY #6 tablet Comments: Your labs show a slightly elevated white blood cell count but otherwise, are fairly unremarkable. Your urinalysis showed only some concentration, which indicates a little dehydration. You have been treated with IV fluids for this. Your CT scan does not show any acute findings of concern, but your chest x-ray does show a small amount of pneumonia. This is most likely the cause of your mild fever, elevated white blood cell count, and heart rate elevation. You have been tested for sepsis and there is no evidence of this at this time. Please take the antibiotics as prescribed. You have been given your first doses here in the emergency department. The pain you are feeling in your left upper abdomen may actually be coming from the inflammation in your lung where the pneumonia is. You might also have some stomach upset that is a result of you being ill. This is expected to pass as you recover. Discharge Date/Time: 03/11/22 00:28
[2022-03-11 00:24] VITALS: BP 112/67
== END 2022-03-11 00:28 | disposition home or self-care (01) ==
LOC: ED 19:05
DX: Z20.822 Contact with and (suspected) exposure to COVID-19 (principal)
CPT/HCPCS: 36415; 71045; 74177; 80053; 81003; 83605; 83690; 85025; 87633; 96365; 96375; 99283; 99284; A9270; Q9967; 81001; 87086

== ENCOUNTER 2022-09-24 11:56 | Outpatient (CLI) | payer MEDICARE ==
[2022-09-24] MEDS ORDERED: iohexoL-300 100 ML VIAL ONE (12:05)
[2022-09-24] MEDS ORDERED: iohexoL-300 100 ML VIAL IVP ONE (14:02)
[2022-09-24] MEDS ORDERED: DIATRIZOATE MEGLU/DIATRIZO SOD 30 ML BOTTLE PO ONE (14:02)
--- NOTE | 2022-09-24 17:25 | CT Report ---
PROCEDURE: CHEST W INDICATIONS: UNEXPLAINED WEIGHT LOSS, NECK PAIN CONTRAST: 100ml Omnipaque 300 TECHNIQUE: After the administration of intravenous contrast, 1 mm axial images were acquired from the pulmonary apices through the posterior costophrenic angles. Axial 5 mm soft tissue kernel reconstructions were performed as well as 8 mm axial MIP and coronal and sagittal 5 mm reformations. For radiation dose reduction, the following was used: automated exposure control, adjustment of mA and/or kV according to patient size. COMPARISON: 01/10/2022 FINDINGS: Image quality: Excellent. Lungs and pleura: No pleural effusions. No pneumothorax. Slight tracheomegaly. Mild central cylindri susan bronchiectasis and bilateral perihilar pleural- parenchymal scarring. Small subpleural consolidat ions in the lateral posterior costophrenic sulci and vertical atelectatic change/scar. No suspicious lung nodules or masses. Mediastinum: Heart size is normal. No pericardial effusions. No mediastinal adenopathy by size criter ia. Stable borderline mediastinal lymph nodes. No significant change to mild right hilar adenopathy. No large vessel abnormality. Mild to moderate coronary artery calcification. Normal esophagus without hiatal hernia. Chest wall and lower neck: Thyroid is unremarkable. No axillary or supraclavicular adenopathy by size . Bones: No suspicious bone lesions. Upper Abdomen: See separate report. IMPRESSION: 1. Chronic mild bilateral bronchiectasis and perihilar scarring. This suggests chronic underlying int erstitial lung disease. 2. No progression of borderline mediastinal lymph nodes and mild right hilar adenopathy. This may be reactive to an infectious or inflammatory process. Reviewed by: Shwetha Lockwood MD on 09/24/2022 5:24 PM PDT Approved by: Shwetha Lockwood MD on 09/24/2022 5:24 PM PDT Station ID: [id number]
--- NOTE | 2022-09-24 17:27 | CT Report ---
PROCEDURE: SOFT TISSUE NECK W INDICATIONS: UNEXPLAINED WEIGHT LOSS, NECK PAIN CONTRAST: 100ml Omnipaque 300 TECHNIQUE: After the administration of intravenous contrast, 3.0 mm axial sections acquired from the sella to th e aortic arch. Additional oblique axial 3.0 mm sections acquired through the pharynx. 3 mm thick co hua reformats were generated. For radiation dose reduction, the following was used: automated exp osure control, adjustment of mA and/or kV according to patient size. COMPARISON: None. FINDINGS: Image quality: Excellent. Lymph nodes: No enlarged lymph nodes seen throughout the neck. Vessels: Visualized vasculature appears patent. Neck spaces: The oropharynx, nasopharynx, and pharynx demonstrate no mucosal lesions. The vocal cor ds, false vocal cords, pyriform sinuses, epiglottis, vallecula, and tongue base all appear normal. E xtramucosal spaces appear unremarkable. Glands: The parotid and submandibular glands appear normal. The thyroid is normal in size and there are no incidental findings. Miscellaneous: Visualized brain and orbits appear normal. Lung apices appear clear. Superficial so ft tissues appear normal. Bones: No suspicious bony lesions. Visualized sinuses and mastoids appear unremarkable. IMPRESSION: No evidence of acute process in the neck. CLINICAL RECOMMENDATION STATEMENTS: In patients <35 years with an ITN detected on CT, MRI, or extrathyroidal ultrasound, the Committee re commends further evaluation with dedicated thyroid ultrasound if the nodule is "e1 cm and has no susp icious imaging features, and if the patient has normal life expectancy. In patients "e35 years with an ITN detected on CT, MRI, or extrathyroidal ultrasound, the Committee r ecommends further evaluation with dedicated thyroid ultrasound if the nodule is "e1.5 cm and has no s uspicious imaging features, and if the patient has normal life expectancy. (ACR, 2014) Reviewed by: Arnulfo Balbuena MD on 09/24/2022 5:25 PM PDT Approved by: Arnulfo Balbuena MD on 09/24/2022 5:25 PM PDT Station ID: [id number]
--- NOTE | 2022-09-24 17:32 | CT Report ---
PROCEDURE: ABDOMEN/PELVIS W INDICATIONS: UNEXPLAINED WEIGHT LOSS, NECK PAIN CONTRAST: 100ml Omnipaque 300 TECHNIQUE: After the administration of IV and oral contrast, 5 mm thick sections acquired from the diaphragms to the symphysis. 5 mm thick coronal and sagittal reformats were acquired. For radiation dose reducti on, the following was used: automated exposure control, adjustment of mA and/or kV according to kalie ent size. COMPARISON: 03/10/2022 FINDINGS: Image quality: Excellent. Lung bases and heart: See separate report. Liver: No suspicious mass. Gallbladder and biliary tree: No gallbladder calcifications or wall thickening. No biliary dilatation .. Spleen: Normal size Pancreas: Normal. Adrenals: No nodules. Kidneys and ureters: Punctate nonobstructing right intrarenal calculus too small to measure. Symmetri c enhancement. No hydronephrosis. Bowel and peritoneum: No bowel distension. No pathologic free fluid. Total colectomy. Right lower khushboo drant ileostomy. Small bowel containing, nonobstructing parastomal hernia. Lymph nodes: No bulky adenopathy. Small lymph nodes are seen in the small bowel mesentery herniating adjacent to the ileostomy. Vessels: Normal caliber. Moderate calcific atherosclerosis. PELVIS Reproductive organs: Markedly enlarged prostate gland. Bladder: The compressed urinary bladder. Lymph nodes: No adenopathy. Bones: No aggressive osseous abnormality. Other: None. IMPRESSION: 1. No CT findings to explain sudden weight loss and no evidence of malignancy. 2. Subtotal colectomy and right lower quadrant ileostomy with nonobstructing adjacent herniated small bowel. 3. Punctate intrarenal calculus. Reviewed by: Shwetha Lockwood MD on 09/24/2022 5:31 PM PDT Approved by: Shwetha Lockwood MD on 09/24/2022 5:31 PM PDT Station ID: [id number]
== END 2022-09-24 11:57 | disposition home or self-care (01) ==
LOC: DI 11:56
PROVIDERS: ATTEND Nurse Practitioner Family
DX: M54.2 Cervicalgia (principal); N20.0 Calculus of kidney; K43.5 Parastomal hernia without obstruction or gangrene; J47.9 Bronchiectasis, uncomplicated; J98.4 Other disorders of lung; R59.0 Localized enlarged lymph nodes
CPT/HCPCS: 70491; 71260; 74177; Q9963; Q9967

== ENCOUNTER 2023-04-07 10:16 | Outpatient (CLI) | payer MEDICARE ==
--- NOTE | 2023-04-07 18:57 | XRAY Report ---
PROCEDURE: Chest 2 View X-Ray INDICATIONS: DYSPNEA TECHNIQUE: 2 views of the chest were acquired. COMPARISON: Chest radiograph on March 10, 2022. CT chest on September 24, 2022. FINDINGS: Surgical changes and devices: None. Lungs and pleura: No pleural effusions or pneumothorax. Bilateral perihilar scarring and central bro nchiectasis is better seen on CT chest dated September 24, 2022. No focal pulmonary consolidation. Mediastinum: Mediastinal contours appear normal. Heart size is normal. Bones and chest wall: No suspicious bony lesions. No acute fractures. Mild multilevel degenerative changes of the spine. Overlying soft tissues appear unremarkable. Upper abdomen: Unremarkable. IMPRESSION: 1. No acute cardiopulmonary process. 2. Bilateral perihilar scarring and central bronchiectasis is better seen on CT chest dated September 24, 2022. No focal pulmonary consolidation. Reviewed by: Mago Appiah MD on 04/07/2023 6:55 PM PDT Approved by: Mago Appiah MD on 04/07/2023 6:55 PM PDT Station ID: [id number]
== END 2023-04-07 10:17 | disposition home or self-care (01) ==
LOC: DI 10:16
PROVIDERS: ATTEND Internal Medicine Cardiovascular Disease
DX: R06.09 Other forms of dyspnea (principal); R63.4 Abnormal weight loss; J47.9 Bronchiectasis, uncomplicated; J84.10 Pulmonary fibrosis, unspecified